=== PATIENT | female | born 1990 | race Caucasian/White ===

== ENCOUNTER 2017-06-27 21:20 | Emergency (ER) | payer BC, MEDICAID ==
[~2017-06-27] VITALS: Ht 154.9 cm; Wt 53.5 kg
[~2017-06-27 21:20] MED LIST: CIPR500T4 PO; CLON-379 PO; HYDR-3498 PO
[2017-06-27 21:29] VITALS: Ht 154.9 cm; Wt 53.5 kg
[2017-06-27] MEDS ORDERED: ONDANSETRON (ODT) 4 MG TAB ODT STA (23:25)
[2017-06-27] MEDS ORDERED: HYDROCODONE/APAP (5/325) TAB PO ONE (23:30)
[2017-06-28 00:30] LABS: ABNORMAL IP MESSAGE 1; BASOPHILS % 0.3 % (0.0-2.0); EOSINOPHILS % 0.1 % (0.0-7.0); HEMATOCRIT 39.3 % (37.0-47.0); HEMOGLOBIN 13.9 g/dl (12.0-16.0); LYMPHOCYTES # 0.5 10^3/ul (0.8-2.9); LYMPHOCYTES % 6.8 % (15.0-51.0); MEAN CORPUSCULAR HEMOGLOBIN 32.2 pg (29.0-33.0); MEAN CORPUSCULAR HGB CONC 35.4 g/dl (32.0-37.0); MEAN PLATELET VOLUME 11.2 fl (7.4-10.4); MONOCYTE # 0.3 10^3/ul (0.3-0.9); MONOCYTES % 3.7 % (0.0-11.0); NEUTROPHILS % 88.8 % (39.0-77.0); PLATELET COUNT 178 10^3/UL (140-415); RED BLOOD COUNT 4.32 10^6/ul (4.20-5.40); RED CELL DISTRIBUTION WIDTH 11.2 % (11.5-14.5); WHITE BLOOD COUNT 7.8 10^3/ul (4.8-10.8)
--- NOTE | 2017-06-28 00:41 | RADRPT ---
PROCEDURE: Pelvic ultrasound. CLINICAL INDICATION: Pelvic pain TECHNIQUE: Feng scale, color doppler, spectral doppler ultrasound of the pelvis was performed with transabdominal transducers. COMPARISON: CT abdomen pelvis 01/26/2016 FINDINGS: Uterus: Position: Retroflexed Normal myometrial echogenicity. Normal appearance of the endometrium. Proliferative phase. Ovaries: Normal sized ovaries with preserved blood flow. No adnexal masses. Free fluid: None. Measurements: Endometrium (cm): 0.7 Uterus (cm): 7.8 x 2.7 x 5.0 Right ovary (cm): 3.1 x 2.2 x 2.5 Left ovary (cm): 2.7 x 1.8 x 2.1 IMPRESSION: Normal pelvic ultrasound. RPTAT: AADD .Ezequiel Dos Santos MD, Date Time Electronically viewed and signed by .Ezequiel Dos Santos MD, on 06/28/2017 00:40 .B/
[2017-06-28 00:44] LABS: ADD UMIC YES; POSITIVE DIFF @See below; UR ASCORBIC ACID NEGATIVE (NEGATIVE); UR BILIRUBIN (Dip) NEGATIVE (NEGATIVE); UR BLOOD (Dip) NEGATIVE (NEGATIVE); UR CLARITY SLIGHTLY CLOUDY (CLEAR); UR COLOR YELLOW (YELLOW); UR GLUCOSE (Dip) NEGATIVE (NEGATIVE); UR KETONES (Dip) 1+ mg/dL (NEGATIVE); UR LEUKOCYTE ESTERASE (Dip) NEGATIVE Leu/ul (NEGATIVE); UR MUCUS FEW /HPF (NONE SEEN); UR NITRITE (Dip) NEGATIVE (NEGATIVE); UR RBC 3 /HPF (0-5); UR SPECIFIC GRAVITY (Dip) 1.021 (1.003-1.030); UR SQUAMOUS EPITHELIAL CELL FEW /HPF (FEW); UR TOTAL PROTEIN (Dip) 1+ mg/dl (NEGATIVE); UR UROBILINOGEN (Dip) 2+ mg/dL (NEGATIVE)
[2017-06-28 01:12] LABS: ALBUMIN 4.5 g/dl (3.3-4.9); ALBUMIN/GLOBULIN RATIO 1.28; BILIRUBIN,INDIRECT 0.4 mg/dl (0-1.1); BILIRUBIN,TOTAL 0.4 mg/dl (0.2-1.3); CALCIUM 9.4 mg/dl (8.4-10.2); CREATININE 0.85 mg/dl (0.44-1.00); POTASSIUM 3.8 mmol/L (3.5-5.1)
--- NOTE | 2017-06-28 01:49 | RADRPT ---
PROCEDURE: CT abdomen and pelvis without intravenous contrast. CLINICAL INDICATION: Right lower quadrant pain. TECHNIQUE: CT of the abdomen/pelvis was performed utilizing axial images with reconstructions in s agittal and coronal planes. The administered radiation dose is CTDI 5.6 mGy, DLP 273 mGy-cm. One or more of the following dose reduction techniques were used: automated exposure control, adjustment of the mA and/or kV according to patient size and/or use of iterative reconstruction technique. COMPARISON: 01/26/2016 FINDINGS: Visualized Chest: The visualized lung bases are clear. Abdomen: The liver, spleen, pancreas, gallbladder,and adrenal glands are unremarkable. The kidneys are without hydronephrosis. No definite urinary calculi are seen. The left kidney has s ome areas of scarring. There is no evidence of bowel obstruction. The appendix is normal. No intra-abdominal free air is seen. There is no evidence of intra-abdominal adenopathy or free fluid. Pelvis: There is no evidence of pelvic adenopathy. The uterus and ovaries are without enlargement. The uri nary bladder is unremarkable. There is no pelvic free fluid. Osseous structures: Unremarkable. IMPRESSION: No acute findings. Normal appendix. RPTAT: HIKT .Cristian Crowe MD, MD Date Time Electronically viewed and signed by .Cristian Crowe MD, MD on 06/28/2017 01:48 .T/
[2017-06-28] MEDS ORDERED: ONDA4TAB14 PO (02:20)
[2017-06-28] MEDS ORDERED: IBUP-1542 PO (02:20)
[2017-06-28 02:43] VITALS: BP 128/90; PULSE 71; RESP 22; TEMP 98.7
[2017-06-28] MEDS ORDERED: IBUPROFEN 600 MG TAB PO ONE (03:00)
--- NOTE | 2017-06-28 03:27 | ERD ---
ER Documentation Chief Complaint Date/Time DATE: 06/28/17 TIME: 03:23 Chief Complaint Right side pelvic pain since this morning. nausea HPI 26-year-old female presents with sharp right-sided lower pelvic pain that began this morning associated with nausea vomiting. She states that the pain is localized, intermittent. She reports up to 3 episodes of nonbloody nonbilious emesis with tactile fevers at home. No diarrhea, no abdominal pain otherwise. Denies flank pain or hematuria. Sick contacts at home include to family members with fever and diarrhea at this time. ROS All systems reviewed and are negative except as per history of present illness. Medications Home Meds Active Scripts Ibuprofen* (Motrin*) 600 Mg Tab, 600 MG PO Q6, #30 TAB Prov:JES BECERRA PA-C 06/28/17 Ondansetron (Ondansetron Odt) 4 Mg Tab.rapdis, 4 MG PO Q6H Y for NAUSEA AND/OR VOMITING, #10 TAB Prov:JES BECERRA PA-C 06/28/17 Hydrocodone Bit-Acetaminophen* ([place]*) 5-325 Mg Tab, 1 TAB PO Q6 Y for PAIN, # 7 TAB Prov:JES BECERRA PA-C 01/26/16 Ciprofloxacin Hcl* (Ciprofloxacin Hcl*) 500 Mg Tablet, 500 MG PO BID for 10 Days , TAB Prov:JES BECERRA PA-C 01/26/16 Clonidine Hcl* (Clonidine Hcl*) 0.1 Mg Tab, 0.1 MG PO TID for bp>150/90, #10 TAB Prov:VALERIE KINGSTON DO 01/15/16 Allergies Allergies: Coded Allergies: No Known Drug Allergies (Verified Allergy, Mild, 08/11/14) shrimp (Unverified Allergy, Unknown, 01/15/16) PMhx/Soc History of Surgery: Yes (C SECTION IN 2010 AND 2012) Anesthesia Reaction: No Hx Neurological Disorder: No Hx Respiratory Disorders: No Hx Cardiac Disorders: No Hx Psychiatric Problems: No Hx Miscellaneous Medical Probl: Yes (MIGRAINES) Hx Alcohol Use: No Hx Substance Use: No Hx Tobacco Use: No Smoking Status: Never smoker Physical Exam Vitals Vital Signs Date Time Temp Pulse Resp B/P Pulse Ox O2 Delivery O2 Flow Rate FiO2 06/28/17 02:43 98.7 71 22 128/90 97 06/27/17 21:29 99.7 124 22 131/103 97 Physical Exam General: Well-developed, well-nourished. The patient appears in no acute distress. HEENT: Head is normocephalic, atraumatic. No scleral icterus. Neck: Supple. Nontender. Lungs: Clear to auscultation. Normal air movement. Heart: Regular rate and rhythm. S1 and S2 are normal. No murmurs, gallops, or rubs. Abdomen: Soft, tender in the right lower pelvic region/right lower quadrant nondistended. Bowel sounds are normoactive. No rebound pain or guarding Extremities: No clubbing or cyanosis. Normal pulses. Moving extremities x 4. No weakness. Neurologic: Alert and oriented 3. No focal deficits. Skin: Normal turgor. No rash or lesions. Result Diagram: 06/27/17235706/27/172357 Results 24 hrs Laboratory Tests Test 06/27/17 23:58 White Blood Count 7.810^3/ul Red Blood Count 4.3210^6/ul Hemoglobin 13.9g/dl Hematocrit 39.3% Mean Corpuscular Volume 91.0fl Mean Corpuscular Hemoglobin 32.2pg Mean Corpuscular Hemoglobin Concent 35.4g/dl Red Cell Distribution Width 11.2% Platelet Count 67929^3/UL Mean Platelet Volume 11.2fl Neutrophils % 88.8% Lymphocytes % 6.8% Monocytes % 3.7% Eosinophils % 0.1% Basophils % 0.3% Nucleated Red Blood Cells % 0.0/100WBC Neutrophils # (Manual) 6.910^3/ul Lymphocytes # 0.510^3/ul Monocytes # 0.310^3/ul Eosinophils # 0.010^3/ul Basophils # 0.010^3/ul Nucleated Red Blood Cells # 0.010^3/ul Urine Color YELLOW Urine Clarity SLIGHTLY CLOUDY Urine pH 7.0 Urine Specific [place] 1.021 Urine Ketones 1+mg/dL Urine Nitrite NEGATIVEmg/dL Urine Bilirubin NEGATIVEmg/dL Urine Urobilinogen 2+mg/dL Urine Leukocyte Esterase NEGATIVELeu/ul Urine Microscopic RBC 3/HPF Urine Microscopic WBC 2/HPF Urine Squamous Epithelial Cells FEW/HPF Urine Mucus FEW/HPF Urine Hemoglobin NEGATIVEmg/dL Urine Glucose NEGATIVEmg/dL Urine Total Protein 1+mg/dl Sodium Level 141mmol/L Potassium Level 3.8mmol/L Chloride Level 103mmol/L Carbon Dioxide Level 28mmol/L Anion Gap 14 Blood Urea Nitrogen 13mg/dl Creatinine 0.85mg/dl Glucose Level 78mg/dl Calcium Level 9.4mg/dl Total Bilirubin 0.4mg/dl Direct Bilirubin 0.00mg/dl Indirect Bilirubin 0.4mg/dl Aspartate Amino Transf (AST/SGOT) 26IU/L Alanine Aminotransferase (ALT/SGPT) 18IU/L Alkaline Phosphatase 45IU/L Total Protein 8.0g/dl Albumin 4.5g/dl Globulin 3.50g/dl Albumin/Globulin Ratio 1.28 Lipase 143U/L Current Medications Medications (Trade) Dose Ordered Sig/Rosa Route PRN Reason Start Time Stop Time Status Last Admin Dose Admin Ondansetron HCl (Zofran Odt) 4 mg ONCE STAT ODT 06/27/17 23:25 06/27/17 23:27 DC 06/27/17 23:55 Acetaminophen/ Hydrocodone Bitart ([place] (5/325)) 1 tab ONCE ONCE PO 06/27/17 23:30 06/27/17 23:31 DC 06/27/17 23:55 Ibuprofen (Motrin) 600 mg ONCE ONCE PO 06/28/17 03:00 06/28/17 03:00 DC 06/28/17 02:42 Radiology Main Line: [phone] DIAGNOSTIC IMAGING REPORT Patient: HUNTER ROCHE : 1990 Age: 26 Sex: F MR #: [id number] DOS: 06/28/17 2325 Ordering MD: JES BECERRA PA-C Location: [facility] Room/Bed: PROCEDURE: Pelvic ultrasound. CLINICAL INDICATION: Pelvic pain TECHNIQUE: Feng scale, color doppler, spectral doppler ultrasound of the pelvis was performed with transabdominal transducers. COMPARISON: CT abdomen pelvis 01/26/2016 FINDINGS: Uterus: Position: Retroflexed Normal myometrial echogenicity. Normal appearance of the endometrium. Proliferative phase. Ovaries: Normal sized ovaries with preserved blood flow. No adnexal masses. Free fluid: None. Measurements: Endometrium (cm): 0.7 Uterus (cm): 7.8 x 2.7 x 5.0 Right ovary (cm): 3.1 x 2.2 x 2.5 Left ovary (cm): 2.7 x 1.8 x 2.1 IMPRESSION: Normal pelvic ultrasound. RPTAT: AADD .Ezequiel Dos Santos MD, Date Time Electronically viewed and signed by .Ezequiel Dos Santos MD, on 06/28/2017 00:40 .B/ CC: JES BECERRA PA-C DIAGNOSTIC IMAGING REPORT Patient: HUNTER ROCHE : 1990 Age: 26 Sex: F MR #: [id number] DOS: 06/27/17 2325 Ordering MD: JES BECERRA PA-C Location: [facility] Room/Bed: PROCEDURE: CT abdomen and pelvis without intravenous contrast. CLINICAL INDICATION: Right lower quadrant pain. TECHNIQUE: CT of the abdomen/pelvis was performed utilizing axial images with reconstructions in sagittal and coronal planes. The administered radiation dose is CTDI 5.6 mGy, DLP 273 mGy-cm. One or more of the following dose reduction techniques were used: automated exposure control, adjustment of the mA and/or kV according to patient size and/or use of iterative reconstruction technique. COMPARISON: 01/26/2016 FINDINGS: Visualized Chest: The visualized lung bases are clear. Abdomen: The liver, spleen, pancreas, gallbladder,and adrenal glands are unremarkable. The kidneys are without hydronephrosis. No definite urinary calculi are seen. The left kidney has some areas of scarring. There is no evidence of bowel obstruction. The appendix is normal. No intra- abdominal free air is seen. There is no evidence of intra-abdominal adenopathy or free fluid. Pelvis: There is no evidence of pelvic adenopathy. The uterus and ovaries are without enlargement. The urinary bladder is unremarkable. There is no pelvic free fluid. Osseous structures: Unremarkable. IMPRESSION: No acute findings. Normal appendix. RPTAT: HIKT .Cristian Crowe MD, Date Time Electronically viewed and signed by .Cristian Crowe MD, on 06/28/2017 01:48 .T/ CC: JES BECERRA PA-C Procedures/MDM 36-year-old female comes in with right-sided lower pelvic pain started this morning with nausea, vomiting, low-grade fever. Patient's symptoms were evaluated, she has tenderness to palpation the right lower pelvic/right lower quadrant region, with a low-grade temperature. She was evaluated, blood work was unremarkable. Urine was negative for infection. CT abdomen pelvis below acute appendicitis. Pelvic ultrasound shows no evidence of torsion, as there is good flow to both ovaries.Other differentials considered include tubo- ovarian abscess, PID, cervicitis, kidney stones, UTI.At this time, patient clinically presents with mild pain, without acute appendicitis. Patient will be discharged home with pain control. I suspect a history of nausea vomiting, with fever may be related to a viral syndrome as to other family members present with a history of fever, vomiting and diarrhea. Pain does not appear to be related to torsion, and she clinically does not have pain that is suspicious of this. Pain may be related to a viral process, versus pelvic pain of unknown cause. She was given ibuprofen as well as [place] and Zofran her symptoms have subsided, and she is stable for discharge per Departure Diagnosis: Primary Impression: Pelvic pain Condition: Good Patient Instructions: Pelvic Pain, Unknown Cause JES BECERRA PA-C Jun 28, 2017 03:27
== END 2017-06-28 02:44 | disposition home or self-care (01) ==
LOC: FTE 21:20
DX: R10.2 Pelvic and perineal pain (principal); R11.2 Nausea with vomiting, unspecified
CPT/HCPCS: 36415; 74176; 76856; 80053; 81001; 83690; 85025

== ENCOUNTER 2019-05-10 23:26 | Emergency (ER) | payer BC ==
[~2019-05-10] VITALS: Ht 157.5 cm; Wt 48.7 kg
[~2019-05-10 23:26] MED LIST changes: +IBUP-1542 PO; +METO10TA92 PO; +ONDA4TAB14 PO
[2019-05-10 23:47] VITALS: Ht 157.5 cm; Wt 48.7 kg
--- NOTE | 2019-05-11 02:16 | ERD ---
ER Documentation Chief Complaint Chief Complaint states 3 months , c/o abd pain/vaginal spotting x 1 day HPI 28-year-old G3, P2 female in her third month of complains of abdominal pain and vaginal spotting for the past day. 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 Patient also states she has a history of preeclampsia. Patient denies any fevers, chills, lighthe adedness, palpitations, chest pain, nausea, vomiting, diarrhea. ROS All systems reviewed and are negative except as per history of present illness. Medications Home Meds Active Scripts Metoclopramide* (Reglan*) 10 Mg Tablet, 10 MG PO Q6 PRN for NAUSEA AND/OR VOMITING, #10 TAB Prov:SARAH CHEATHAM 05/11/19 Ibuprofen* (Motrin*) 600 Mg Tab, 600 MG PO Q6, #30 TAB Prov:JES BECERRA PA-C 06/28/17 Ondansetron (Ondansetron Odt) 4 Mg Tab.rapdis, 4 MG PO Q6H PRN for NAUSEA AND/OR VOMITING, #10 TAB Prov:JES BECERRA PA-C 06/28/17 Hydrocodone Bit-Acetaminophen* ([place]*) 5-325 Mg Tab, 1 TAB PO Q6 PRN for PAIN, #7 TAB Prov:JES BECERRA PA-C 01/26/16 Ciprofloxacin Hcl* (Ciprofloxacin Hcl*) 500 Mg Tablet, 500 MG PO BID for 10 Days, TAB Prov:JES BECERRA PA-C 01/26/16 Clonidine Hcl* (Clonidine Hcl*) 0.1 Mg Tab, 0.1 MG PO TID for bp>150/90, #10 TAB Prov:VALERIE KINGSTON DO 01/15/16 Allergies Allergies: Coded Allergies: No Known Drug Allergies (Verified Allergy, Mild, 08/11/14) shrimp (Unverified Allergy, Unknown, 01/15/16) PMhx/Soc History of Surgery: Yes (C SECTION IN 2010 AND 2012) Anesthesia Reaction: No Hx Neurological Disorder: No Hx Respiratory Disorders: No Hx Cardiac Disorders: No Hx Psychiatric Problems: No Hx Miscellaneous Medical Probl: Yes (MIGRAINES) Hx Alcohol Use: No Hx Substance Use: No Hx Tobacco Use: No Smoking Status: Never smoker FmHx Family History: No diabetes, No coronary disease, No other Physical Exam Vitals Vital Signs Date Temp Pulse Resp B/P (MAP) Pulse Ox O2 O2 Flow FiO2 Time Delivery Rate 05/11/19 98.0 76 18 142/96 99 Room Air 04:55 (111) 05/10/19 98.6 100 20 155/90 99 23:47 (111) Physical Exam Const: No acute distress Head: Atraumatic Eyes: Normal Conjunctiva ENT: Normal External Ears, Nose and Mouth. Neck: Full range of motion. No meningismus. Resp: Clear to auscultation bilaterally Cardio: Regular rate and rhythm, no murmurs Abd: Soft, non tender, non distended. Normal bowel sounds Skin: No petechiae or rashes Back: No midline or flank tenderness Ext: No cyanosis, or edema Neur: Awake and alert Psych: Normal Mood and Affect Result Diagram: 05/11/19 0209 Results 24 hrs Laboratory Tests Test 05/11/19 02:07 05/11/19 02:09 Urine Color YELLOW Urine Clarity SLIGHTLY CLOUDY Urine pH 6.0 Urine Specific [place] 1.026 Urine Ketones 1+ mg/dL Urine Nitrite NEGATIVE mg/dL Urine Bilirubin NEGATIVE mg/dL Urine Urobilinogen NEGATIVE mg/dL Urine Leukocyte Esterase NEGATIVE Codi/ul Urine Microscopic RBC 2 /HPF Urine Microscopic WBC 5 /HPF Urine Squamous Epithelial Cells FEW /HPF Urine Bacteria FEW /HPF Urine Mucus FEW /HPF Urine Hemoglobin NEGATIVE mg/dL Urine Glucose NEGATIVE mg/dL Urine Total Protein 1+ mg/dl White Blood Count 6.7 10^3/ul Red Blood Count 3.79 10^6/ul Hemoglobin 12.2 g/dl Hematocrit 34.3 % Mean Corpuscular Volume 90.5 fl Mean Corpuscular Hemoglobin 32.2 pg Mean Corpuscular Hemoglobin Concent 35.6 g/dl Red Cell Distribution Width 11.6 % Platelet Count 190 10^3/UL Mean Platelet Volume 10.9 fl Immature Granulocytes % 0.300 % Neutrophils % 62.2 % Lymphocytes % 26.6 % Monocytes % 8.1 % Eosinophils % 2.7 % Basophils % 0.1 % Nucleated Red Blood Cells % 0.0 /100WBC Immature Granulocytes # 0.020 10^3/ul Neutrophils # 4.2 10^3/ul Lymphocytes # 1.8 10^3/ul Monocytes # 0.5 10^3/ul Eosinophils # 0.2 10^3/ul Basophils # 0.0 10^3/ul Nucleated Red Blood Cells # 0.0 10^3/ul Beta HCG, Quantitative 094841.0 mIU/ml Current Medications Medications Dose Sig/Rosa Start Time Status Last (Trade) Ordered Route PRN Stop Time Admin Dose Reason Admin Ondansetron 4 mg STK-MED 05/11/19 DC HCl (Zofran ONCE ODT 04:31 Odt) 05/11/19 04:32 Ondansetron 4 mg ONCE STAT 05/11/19 DC 05/11/19 HCl (Zofran ODT 04:46 04:49 Odt) 05/11/19 04:49 Procedures/MDM MDM: DIAGNOSTIC IMAGING REPORT Patient: SON ROCHE : 1990 Age: 28 Sex: F MR #: [id number] DOS: 05/11/19 0204 Ordering MD: SARAH CHEATHAM Location: [facility] Room/Bed: PROCEDURE: US OB < 14 weeks. CLINICAL INDICATION: Spotting TECHNIQUE: Multiple sonographic images of the pelvis were obtained. The images were reviewed on a PACS workstation. COMPARISON: None FINDINGS: There is a single live intrauterine with heart rate 166 beats per minute. No evidence of a subchorionic hemorrhage. Measurements as follows: MSD: 4.27 cm CRL: 3.02 cm EGA: 10 weeks 0 days POP: 12/07/2019 The right ovary measures 2.9 x 2.0 x 2.2 cm. The left ovary is not seen. Vascular flow to the right ovary is demonstrated with Doppler imaging. No adnexal lesions identified. No pelvic free fluid. IMPRESSION: 1. Single live intrauterine gestation of approximately 10 weeks 0 days. Estimated date of delivery 12/07/2019. 2. Right ovary is unremarkable. Left ovary is not seen. No pelvic free fluid. RPTAT: HJBB Physician Jammie Date Time Electronically viewed and signed by Physician Jammie on 05/11/2019 04:24 xB/ CC: SARAH CHEATHAM [id number] MDM: All labs and imaging within normal limits. ER Course: CBC, UA, beta quant HCG, type and RH, vaginal US/abdominal US ordered. MDM: CBC, UA, beta quant HCG, type and RH, vaginal US/abdominal US ordered. All results within limits. At this point I have low suspicion for ectopic based on results of US, hemodynamic stability, physical exam and patient history. I have low suspicion for septic , pyelonephritis, placenta abrupta, appendicitis, cholecystitis, bowel obstruction, ovarian torsion, symptomatic anema, PID, surgical abdomen, hemorrhage, or other life threatening conditions based on patient history, physical exam, and lab/imaging results. At time of discharge patient was hemodynamically stable. At this time, patient is stable for discharge and outpatient management. I have instructed the patient to follow-up with his/her primary care physician in 1-2 days. I have discussed with the patient the possibility of needing to see a specialist for further workup and imaging studies if symptoms persist. I have instructed the patient to promptly return to the ER for any new or worsening s ymptoms including but not limited to increased pain, fever, nausea, vomiting, weakness or LOC. The patient and/or family expressed understanding of and agreement with this plan. All questions were answered. Home care instructions were provided. DISCLAIMER: Inadvertent spelling and grammatical errors are likely due to EHR/dictation software use and do not reflect on the overall quality of patient care. Also, please note that the electronic time recorded on this note does not necessarily reflect the actual time of the patient encounter. Departure Diagnosis: Primary Impression: Vaginal bleeding in patient at less than 20 weeks gestation Additional Impression: Pelvic pain Condition: Stable SARAH CHEATHAM May 11, 2019 02:16
[2019-05-11] MEDS ORDERED: ONDANSETRON (ODT) 4 MG TAB ODT ONE (04:31)
[2019-05-11] MEDS ORDERED: ONDANSETRON (ODT) 4 MG TAB ODT STA (04:46)
[2019-05-11 04:55] VITALS: BP 142/96; PULSE 76; RESP 18
== END 2019-05-11 05:22 | disposition home or self-care (01) ==
LOC: FTE 23:26
DX: O20.9 Hemorrhage in early pregnancy, unspecified (principal); R10.2 Pelvic and perineal pain; Z3A.10 10 weeks gestation of pregnancy
CPT/HCPCS: 36415; 76801; 81001; 84702; 85025; 86900; 86901; 87086